=== PATIENT | female | born 1985 | race Caucasian/White ===

== ENCOUNTER 2019-09-08 13:20 | Emergency (ER) | payer BC, MEDICAID ==
--- NOTE | 2019-09-08 14:13 | XRAY ---
Indication: Cough and dyspnea. Comparison: April 21, 2009. Portable chest again demonstrates normal heart, lungs, and bony thorax.
[2019-09-08 15:27] LABS: INFLUENZA A NEGATIVE (NEGATIVE); INFLUENZA B NEGATIVE (NEGATIVE); RESPIRATORY SYNCTIAL VIRUS NEGATIVE (Negative)
[2019-09-08] MEDS ORDERED: Rocephin 1000 MG INJ IM ONE (15:37)
--- NOTE | 2019-09-08 15:37 | ERPHSYRPT ---
- History of Present Illness Time Seen by Provider: 09/08/19 13:30 Source: patient Exam Limitations: no limitations Patient Subjective Stated Complaint: Cough Triage Nursing Assessment: Patient ambulated back to ED and transferred self to bed. Patient A+O X3. Patient's skin pink, warm and dry. Patient complains of cough since Saturday. Patient states cough is productive with thick yellow/green sputum. Patient's lungs clear a/p brigette. Patient denies pain, but states she aches all over. Physician History: patient is a 34-year-old female who presents with cough for 5 days producing green-yellow sputum she has had no fever her sinuses have been very congested she is getting some drainage from her head she also says it hurts to cough. Timing/Duration: day(s) (5) Cough Quality/Degree: productive cough, sputum Possible Cause: occasional episodes Modifying Factors: Improves With: coughing Associated Symptoms: chest pain/soreness, cough, facial pain, headache, nasal congestion, nasal drainage Allergies/Adverse Reactions: clarithromycin [From Biaxin] Allergy (Verified 09/08/19 13:27) codeine Allergy (Verified 09/08/19 13:27) methylprednisolone acetate [From Depo-Medrol] Allergy (Verified 09/08/19 13:27) medroxyprogesterone acetate [From Depo-Provera] Adverse Reaction (Verified 09/08 13:27) promethazine HCl [From Phenergan] Adverse Reaction (Verified 09/08/19 13:27) Home Medications: Naproxen 375 mg [Naprosyn 375 mg] 1 tab PO BID 09/08/19 [History] Hx Tetanus, Diphtheria Vaccination/Date Given: Yes Hx Influenza Vaccination/Date Given: No Hx Pneumococcal Vaccination/Date Given: No Immunizations Up to Date: Yes - Review of Systems Constitutional: No Fever, No Chills Eyes: No Symptoms Ears, Nose, & Throat: Nose Congestion, Nose Discharge, Sinus Drainage Respiratory: Cough, No Dyspnea Cardiac: Chest Pain (with cough), No Edema, No Syncope Abdominal/Gastrointestinal: No Abdominal Pain, No Nausea, No Vomiting, No Diarrhea Genitourinary Symptoms: No Dysuria Musculoskeletal: No Back Pain, No Neck Pain Skin: No Rash Neurological: No Dizziness, No Focal Weakness, No Sensory Changes Psychological: No Symptoms Endocrine: No Symptoms All Other Systems: Reviewed and Negative - Past Medical History Pertinent Past Medical History: Yes Neurological History: No Pertinent History ENT History: No Pertinent History Cardiac History: No Pertinent History Endocrine Medical History: No Pertinent History Musculoskeletal History: Fibromyalgia GI Medical History: No Pertinent History History: No Pertinent History Psycho-Social History: No Pertinent History Female Reproductive Disorders: No Pertinent History - Past Surgical History Past Surgical History: Yes Neuro Surgical History: No Pertinent History Cardiac: No Pertinent History Respiratory: No Pertinent History Gastrointestinal: Appendectomy, Cholecystectomy Genitourinary: No Pertinent History Musculoskeletal: No Pertinent History Female Surgical History: Hysterectomy, Other Other Surgical History: TONSILLECTOMY - BREAST REDUCTION - Social History Smoking Status: Current every day smoker How long have you smoked: years Exposure to second hand smoke: Yes Drug Use: none Patient Lives Alone: No - Female History Hx Last Menstrual Period: complete hysterectomy Hx Now: No - Nursing Vital Signs Nursing Vital Signs: Initial Vital Signs Temperature 97.9 F 09/08/19 13:29 Pulse Rate 107 H 09/08/19 13:29 Respiratory Rate 18 09/08/19 13:29 Blood Pressure 143/101 09/08/19 13:29 O2 Sat by Pulse Oximetry 97 09/08/19 13:29 Pain Scale Pain Intensity 3 - Physical Exam General Appearance: mild distress, alert Eye Exam: PERRL/EOMI, eyes nml inspection Ears, Nose, Throat Exam: normal ENT inspection, TMs normal, pharynx normal, moist mucous membranes Neck Exam: normal inspection, non-tender, supple, full range of motion Respiratory Exam: rhonchi, No respiratory distress Cardiovascular Exam: regular rate/rhythm, normal heart sounds Gastrointestinal/Abdomen Exam: soft, No tenderness Back Exam: normal inspection, No CVA tenderness, No vertebral tenderness Extremity Exam: normal inspection, normal range of motion Neurologic Exam: alert, oriented x 3, cooperative, normal mood/affect, sensation nml, No motor deficits Skin Exam: normal color, warm, dry, No rash Lymphatic Exam: No adenopathy SpO2: 97 - Course Nursing assessment & vital signs reviewed: Yes - Radiology Exams Chest X-ray Interpretation: Negative Ordered Tests: Active Orders 24 hr Category Date Time Status CHEST 1 VIEW (PORTABLE) Stat Exams 09/08/19 13:53 Completed Lab/Rad Data: Laboratory Results 09/08/19 Range/Units 14:05 Influenza Type A Ag NEGATIVE (NEGATIVE) Influenza Type B Ag NEGATIVE (NEGATIVE) RSV (PCR) NEGATIVE (Negative) - Progress Progress: unchanged Air Movement: good Blood Culture(s) Obtained: No Antibiotics given: Yes - Departure Departure Disposition: Home Clinical Impression: Sinusitis Condition: Stable Critical Care Time: No Referrals: SHAZIA VALDEZ [Primary Care Provider] - Prescriptions: Benzonatate [Tessalon Perle] 200 mg PO TID #12 capsule Cephalexin Mh 500 mg [Keflex 500 mg] 500 mg PO TID 10 Days #30 capsule
[2019-09-08] MEDS ORDERED: Rocephin 1000 MG INJ ONE (15:50)
[2019-09-08] MEDS ORDERED: XYLOCAINE 1% HCL 20 ML MDV ONE (15:51)
[2019-09-08 16:20] VITALS: BP 124/86; PULSE 104; O2SAT 99
== END 2019-09-08 16:20 | disposition home or self-care (01) ==
LOC: ED 13:20
DX: J32.9 Chronic sinusitis, unspecified (principal); R07.89 Other chest pain; R05 Cough; R51 Headache; R09.81 Nasal congestion
CPT/HCPCS: 71045; 87631; 96372; 99284; J0696

== ENCOUNTER 2021-03-30 11:13 | Emergency (ER) | payer MEDICAID ==
[2021-03-30] MEDS ORDERED: TORAdol 30 mg Injection IM ONE (11:35)
[2021-03-30] MEDS ORDERED: Norflex 60 MG/2 ML IM ONE (11:35)
[2021-03-30] MEDS ORDERED: Norflex 60 MG/2 ML ONE (11:38)
[2021-03-30] MEDS ORDERED: TORAdol 30 mg Injection ONE (11:38)
--- NOTE | 2021-03-30 11:41 | ERPHSYRPT ---
- History of Present Illness Time Seen by Provider: 03/30/21 11:15 Source: patient Exam Limitations: no limitations Patient Subjective Stated Complaint: pt here for pain to irght lower back and hip, she states she was helping with her grandma whos in a wc and hurt it openi ng a door, Triage Nursing Assessment: pt alert, resp easy, waked in, skin w/d/p. has face mask on Physician History: 35 years old female with history of back pain with SI joint issues in the past presented in the ER with chief complaint of right lower back pain/sacroiliac area for the last 4 days after she was trying to pull her grandma on wheelchair, twisted to open the door and felt a popping sensation in the right sacroiliac area. Since then she is having sharp nature moderate to severe pain more with ambulation and better with resting without any midline pain. No loss of bowel or bladder control. Denies any numbness tingling or weakness of lower extremities. She has been taking Tylenol with no significant relief. Timing/Duration: day(s) (4), sudden, worse Method of Injury: twisted Quality: sharp Back Pain Location: paraspinous muscles Back Pain Radiation: buttocks Severity of Pain-Max: severe Severity of Pain-Current: moderate Modifying Factors: Improves With: immobilization, rest. Worsens With: movement Associated Symptoms: lower back pain, muscle spasms, No urinary incontinence, No loss of bowel control, No constipation, No nausea, No vomiting, No problems urinating, No light-headedness, No dizziness, No numbness in legs/feet, No sensory/motor loss Allergies/Adverse Reactions: clarithromycin [From Biaxin] Allergy (Verified 03/30/21 11:26) codeine Allergy (Verified 03/30/21 11:26) methylprednisolone acetate [From Depo-Medrol] Allergy (Verified 03/30/21 11:26) medroxyprogesterone acetate [From Depo-Provera] Adverse Reaction (Verified 03/30/21 11:26) promethazine HCl [From Phenergan] Adverse Reaction (Verified 03/30/21 11:26) Home Medications: Loratadine 10 mg [Claritin 10 mg] 1 ea DAILY 03/30/21 [History] Hx Tetanus, Diphtheria Vaccination/Date Given: Yes Hx Influenza Vaccination/Date Given: No Hx Pneumococcal Vaccination/Date Given: No Immunizations Up to Date: Yes Travel Risk - International Travel Have you traveled outside of the country in past 3 weeks: No - Coronavirus Screening Are you exhibiting any of the following symptoms?: No - Vaccine Status Have you recieved a Covid-19 vaccination: No - Review of Systems Constitutional: No Symptoms Ears, Nose, & Throat: No Symptoms Respiratory: No Symptoms Cardiac: No Symptoms Abdominal/Gastrointestinal: No Symptoms Genitourinary Symptoms: No Symptoms Musculoskeletal: Back Pain Neurological: No Symptoms Psychological: No Symptoms Endocrine: No Symptoms Hematologic/Lymphatic: No Symptoms Immunological/Allergic: No Symptoms - Past Medical History Pertinent Past Medical History: Yes Neurological History: No Pertinent History ENT History: No Pertinent History Cardiac History: No Pertinent History Endocrine Medical History: No Pertinent History Musculoskeletal History: Fibromyalgia GI Medical History: No Pertinent History History: No Pertinent History Psycho-Social History: No Pertinent History Female Reproductive Disorders: No Pertinent History - Past Surgical History Past Surgical History: Yes Neuro Surgical History: No Pertinent History Cardiac: No Pertinent History Respiratory: No Pertinent History Gastrointestinal: Appendectomy, Cholecystectomy Genitourinary: No Pertinent History Musculoskeletal: No Pertinent History Female Surgical History: Hysterectomy, Other Other Surgical History: TONSILLECTOMY - BREAST REDUCTION - Social History Smoking Status: Current every day smoker How long have you smoked: years Exposure to second hand smoke: No Drug Use: marijuana Patient Lives Alone: Yes - Female History Hx Last Menstrual Period: hyster Hx Now: No - Nursing Vital Signs Nursing Vital Signs: Initial Vital Signs Temperature 97.1 F 03/30/21 11:21 Pulse Rate 100 H 03/30/21 11:21 Respiratory Rate 18 03/30/21 11:21 Blood Pressure 115/89 03/30/21 11:21 O2 Sat by Pulse Oximetry 94 L 03/30/21 11:21 Pain Scale Pain Intensity [Right Hip] 6 Pain Intensity 9 - Physical Exam General Appearance: no apparent distress, alert Ears, Nose, Throat Exam: normal ENT inspection Neck Exam: normal inspection, supple, full range of motion Respiratory Exam: normal breath sounds, lungs clear Cardiovascular Exam: regular rate/rhythm, normal heart sounds Gastrointestinal Exam: soft, normal bowel sounds, No tenderness Back Exam: normal inspection, normal range of motion, muscle spasm, point tenderness (Right sacroiliac area), No CVA tenderness, No vertebral tenderness Extremity Exam: normal inspection, normal range of motion, pelvis stable Neurologic Exam: alert, oriented x 3, cooperative, other (2+ reflexes in lower extremities bilaterally/symmetrical) Skin Exam: normal color, warm SpO2 Interpretation: normal SpO2: 94 O2 Delivery: Room Air Ordered Tests: Medication Summary Discontinued Medications Generic Name Dose Route Start Last Admin Trade Name Sophy PRN Reason Stop Dose Admin Ketorolac Tromethamine 30 mg 03/30/21 11:35 03/30/21 11:50 Toradol 30 Mg Injection IM 03/30/21 11:36 30 mg STAT ONE Administration Ketorolac Tromethamine Confirm 03/30/21 11:38 Toradol 30 Mg Injection Administered 03/30/21 11:39 Dose 30 mg .ROUTE .STK-MED ONE Orphenadrine Citrate 60 mg 03/30/21 11:35 03/30/21 11:51 Norflex 60 Mg/2 Ml IM 03/30/21 11:36 60 mg STAT ONE Administration Orphenadrine Citrate Confirm 03/30/21 11:38 Norflex 60 Mg/2 Ml Administered 03/30/21 11:39 Dose 60 mg .ROUTE .STK-MED ONE - Progress Progress: improved, pain not gone completely, re-examined Progress Note: She is given Toradol and Norflex, on reevaluation feeling better. Does not have any neuro symptoms in lower extremity. No loss of bowel or bladder control. Pain is not in midline. Is more of a sacroiliac area strain. Recommended NSAIDs and muscle relaxers to go home. Discussed signs symptoms of worsening needing return to ER which he seems understanding. Stable for discharge. 03/30/21 13:00 Counseled pt/family regarding: diagnosis, need for follow-up - Departure Departure Disposition: Home Clinical Impression: Low back strain Qualifiers: Encounter type: initial encounter Qualified Code(s): S39.012A - Strain of muscle, fascia and tendon of lower back, initial encounter Condition: Stable Critical Care Time: No Referrals: SHAZIA VALDEZ [Primary Care Provider] - Follow Up with PCP/3 days Instructions: Low Back Pain (DC) Additional Instructions: Take Tylenol/ibuprofen along with muscle relaxants. Follow-up with primary care for reevaluation. Return to ER for worsening back pain, numbness tingling weakness of lower extremities/loss of bowel or bladder control. Prescriptions: Ibuprofen 600 mg PO Q6HPRN PRN 10 Days #20 tablet PRN Reason: Pain Cyclobenzaprine HCl 10 mg [Flexeril 10 MG] 10 mg PO TID #20 tablet
[2021-03-30 13:33] VITALS: BP 113/71; PULSE 83; O2SAT 96
== END 2021-03-30 13:34 | disposition home or self-care (01) ==
LOC: ED 11:13
DX: M54.5 Low back pain (principal); M25.559 Pain in unspecified hip; X50.0XXA Overexertion from strenuous movement or load, initial encounter; Y93.89 Activity, other specified; Y92.89 Other specified places as the place of occurrence of the external cause
CPT/HCPCS: 96372; 99283; J1885; J2360

== ENCOUNTER 2025-07-24 10:52 | Emergency (ER) | payer OTHER ==
[2025-07-24] MEDS ORDERED: TORAdol 30 mg Injection ONE (11:27)
[2025-07-24] MEDS ORDERED: VALIUM 10 MG/2 ML SYRINGE ONE (11:27)
[2025-07-24] MEDS: VALIUM 10 MG/2 ML SYRINGE IV ONE (11:28)
[2025-07-24] MEDS: TORAdol 30 mg Injection IV ONE (11:28)
--- NOTE | 2025-07-24 12:32 | ERPHSYRPT ---
- History of Present Illness Time Seen by Provider: 07/24/25 11:45 Source: patient Exam Limitations: clinical condition Patient Subjective Stated Complaint: chronic back pain Triage Nursing Assessment: Pt brought to the ER by EMS, vitals wnl, rates pain as 8/10, pulses normal, skin n/w/d, pt reports injuring SI joint 18 years ago, pt states that she had an MRi on December and just found out that her L4-L5 was "messed up" and it is radiating to her right buttock and radiates down her leg, denies chest injury, no SOB, doesn't appear to be in any distress Severity: moderate Allergies/Adverse Reactions: clarithromycin [From Biaxin] Allergy (Verified 01/28/25 20:44) codeine Allergy (Verified 01/28/25 20:44) methylprednisolone acetate [From Depo-Medrol] Allergy (Verified 01/28/25 20:44) medroxyprogesterone acetate [From Depo-Provera] Adverse Reaction (Verified 01/28/25 20:44) promethazine HCl [From Phenergan] Adverse Reaction (Verified 01/28/25 20:44) Home Medications: Loratadine 10 mg [Claritin 10 mg] 10 mg PO DAILY 03/30/21 [History] Ergocalciferol (Vitamin D2) [Vitamin D2] 1,250 mcg PO WEEKLY 01/28/25 [History] Hydroxyzine HCl 25 mg [Atarax 25 mg] 25 mg PO DAILY PRN 01/28/25 [History] Valacyclovir HCl [valACYclovir] 1,000 mg PO BID 01/28/25 [History] methocarbamoL [Methocarbamol] 750 mg PO BID 01/28/25 [History] ondansetron HCL [Ondansetron HCl] 4 mg PO DAILY PRN 01/28/25 [History] Desvenlafaxine Succinate [Desvenlafaxine Succinate ER] 25 mg PO DAILY 07/24/25 [History] Hydrocodone/Ibuprofen [Hydrocodone-Ibuprofen 7.5-200] 1 each PO Q4-6HPRN PRN 07/24/25 [History] Hx Tetanus, Diphtheria Vaccination/Date Given: Yes Hx Influenza Vaccination/Date Given: No Hx Pneumococcal Vaccination/Date Given: No Travel Risk - International Travel Have you traveled outside of the country in past 3 weeks: No - Emerging Infectious Disease Are you exhibiting symptoms associated with any current EIDs: No - Review of Systems Constitutional: No Symptoms Eyes: No Symptoms Ears, Nose, & Throat: No Symptoms Respiratory: No Symptoms Cardiac: No Symptoms Abdominal/Gastrointestinal: No Symptoms Genitourinary Symptoms: No Symptoms Musculoskeletal: Back Pain Skin: No Symptoms Neurological: No Symptoms Psychological: No Symptoms Endocrine: No Symptoms Hematologic/Lymphatic: No Symptoms Immunological/Allergic: No Symptoms All Other Systems: Reviewed and Negative - Past Medical History Pertinent Past Medical History: Yes Neurological History: No Pertinent History ENT History: No Pertinent History Cardiac History: No Pertinent History Endocrine Medical History: No Pertinent History Musculoskeletal History: Fibromyalgia GI Medical History: No Pertinent History History: No Pertinent History Psycho-Social History: No Pertinent History Female Reproductive Disorders: No Pertinent History - Past Surgical History Past Surgical History: Yes Neuro Surgical History: No Pertinent History Cardiac: No Pertinent History Respiratory: No Pertinent History Gastrointestinal: Appendectomy, Cholecystectomy Genitourinary: No Pertinent History Musculoskeletal: No Pertinent History Female Surgical History: Hysterectomy, Other Other Surgical History: TONSILLECTOMY - BREAST REDUCTION - Female History Hx Last Menstrual Period: hysterectomy Hx Now: No - Social History Smoking Status: Current every day smoker How long have you smoked: years Exposure to second hand smoke: Yes Drug Use: marijuana - Social Determinants of Health Will the patient participate in the screening: Yes Do you worry about a steady place to live?: No Do you have any problems with any of the following?: No known problems In the past 12 months,have you had to go without utilities?: No Transportation Issues: No Has anyone in your support network made you feel unsafe?: No Have you or anyone in your house had to go w/o enough food: No - Nursing Vital Signs Nursing Vital Signs: Initial Vital Signs Blood Pressure 133/93 07/24/25 11:00 O2 Sat by Pulse Oximetry 99 07/24/25 11:00 Pain Scale Pain Intensity [Medial Back] 7 Pain Intensity 0 - Physical Exam General Appearance: anxiety Eye Exam: PERRL/EOMI Respiratory Exam: normal breath sounds Cardiovascular Exam: regular rate/rhythm Gastrointestinal/Abdomen Exam: soft, normal bowel sounds Extremity Exam: other (patient is tender to the lower lumbar region on the right and has fair ROM of the right lower extremity with passive and active ROM when she is laying down , she has paravetebral muscle spasm) Neurologic Exam: alert, oriented x 3 Skin Exam: normal color SpO2: 97 Ordered Tests: Active Orders 24 hr Category Date Time Status LUMBAR SPINE W/O [CT] Stat Exams 07/24/25 11:24 Completed Medication Summary Discontinued Medications Generic Name Dose Route Start Last Admin Trade Name Sophy PRN Reason Stop Dose Admin Diazepam 10 mg 07/24/25 11:23 07/24/25 11:28 Diazepam 10 Mg/2 Ml Disp.Syringe IV 07/24/25 11:24 10 mg STAT ONE Administration Diazepam Confirm 07/24/25 11:27 Diazepam 10 Mg/2 Ml Disp.Syringe Administered 07/24/25 11:28 Dose 10 mg .ROUTE .STK-MED ONE Haloperidol Lactate 5 mg 07/24/25 15:49 07/24/25 16:05 Haloperidol Lactate 5 Mg/Ml Vial IV 07/24/25 15:50 5 mg STAT ONE Administration Haloperidol Lactate Confirm 07/24/25 16:05 Haloperidol Lactate 5 Mg/Ml Vial Administered 07/24/25 16:06 Dose 5 mg .ROUTE .STK-MED ONE Ketorolac Tromethamine 30 mg 07/24/25 11:24 07/24/25 11:28 Ketorolac Tromethamine 30 Mg/Ml Inj IV 07/24/25 11:25 30 mg STAT ONE Administration Ketorolac Tromethamine Confirm 07/24/25 11:27 Ketorolac Tromethamine 30 Mg/Ml Inj Administered 07/24/25 11:28 Dose 30 mg .ROUTE .STK-MED ONE - Progress Progress Note: patient was seen and evaluated for her complaints and ct lumbar spine was ordered she was updated with the results 07/24/25 13:15 IMPRESSION: 1. Secondary changes of back muscles spasm. 2. Mild lumbar spondylosis. 3. Multilevel disc bulges with superadded protrusion, resulting in subsequent neural foraminal stenosis, are becoming more evident at L4-L5 and L5-S1, showing moderate neural foraminal stenosis with subsequent impingement on the exiting nerve roots, as detailed. 4. Facet joint arthropathy adds to the neural compromise. 5. Mild arthritic changes along both sacroiliac joints. 6. In comparison to the previous exam, the time interval progression with multilevel disc bulges and de stanton facet joint arthropathy which weren't evident in the prior study. Patient wishes to be transferred to [facility] as she has been seen in treated there in the past I spoke to the neurosurgeon on-call who reviewed the patient's images he wants the patient transferred to [facility] for further evaluation and treatment he will see the patient in consultation. I spoke to the hospitalist Dr. doe -she will see the patient in consultation and will except the patient she was updated with the patient's lab results and CT results and therapies administered. Patient and her family were updated with the plan and are agreeable and have no further questions 07/24/25 17:03 - Departure Departure Disposition: Transfer (to [facility]) Clinical Impression: Acute low back pain Condition: Stable Critical Care Time: No Referrals: SAW ACEVEDO MD [Primary Care Provider, [facility]] - Follow up/PCP as directed
--- NOTE | 2025-07-24 13:06 | XRAY ---
CLINICAL HISTORY: acute back pain COMPARISON: Previous CT study dated 08/28/2008. TECHNIQUE: CT non-contrast scan of lumbar spine done. Axial images obtained with reformatted coronal and sagittal images and submitted for interpretation. One of the following dose reduction techniques were utilized for this exam: Automated exposure control, adjustment of the mA and/or kV according to patient size, use of iterative reconstruction. FINDINGS: Vertebrae: Spastric traightening of the lumbar spine. Normal alignment of the lumbar vertebrae. No fractures, lytic or sclerotic lesions. Normal bone density without evidence of osteopenia or osteoporosis. Mild spondylodegenrative changes of the spine Intervertebral Discs: Minimally reduced disc height was identified along the L5-S1 level. Otherwise, rather preserved disc heights were identified. L3-L4: 2.2 diffuse disc bulge, indenting the thecal sac and encroaching on both neural exit pathways. Bilateral mild neural foraminal stenosis. L4-L5: 5mm left paracentral and left foraminal protrusion on top of diffuse disc bulge indenting the thecal sac and encroaching on both neural exit pathways. Left-sided moderate neural foraminal stenosis, right-sided mild neural foraminal stenosis. Suspected impingement on the exiting nerve roots is more on the left side. L5-S1: 6.2mm broad-base central/ right paracentral and foraminal protrusion on top of diffuse disc bulge, indenting the thecal sac and encroaching on both neural exit pathways. Right-sided moderate to severe neural foraminal stenosis, and left-sided mild to moderate neural foraminal stenosis. Suspected impingement on the exiting nerve roots is more on the right side. The rest of the scanned lumbar and lower thoracic discs show no significant disc pathology and no neural foraminal stenosis. Facet Joints: Facet arthropathy was identified and is more evident at the L4-L5 and L5-S1 levels. Spinal Canal: The spinal canal is of normal caliber with no evidence of primary spinal stenosis. Sacroiliac joints: Bilateral arthritic changes along both sacroiliac joints. Soft Tissues: Normal appearance of the paraspinal soft tissues. No abnormal masses, fluid collections, or signs of inflammation. IMPRESSION: 1. Secondary changes of back muscles spasm. 2. Mild lumbar spondylosis. 3. Multilevel disc bulges with superadded protrusion, resulting in subsequent neural foraminal stenosis, are becoming more evident at L4-L5 and L5-S1, showing moderate neural foraminal stenosis with subsequent impingement on the exiting nerve roots, as detailed. 4. Facet joint arthropathy adds to the neural compromise. 5. Mild arthritic changes along both sacroiliac joints. 6. In comparison to the previous exam, the time interval progression with multilevel disc bulges and de stanton facet joint arthropathy which weren't evident in the prior study. Electronically Signed by: Bala Ashley MD. (07/24/2025 13:04:12 EST)
[2025-07-24 14:39] VITALS: RESP 18
[2025-07-24] MEDS: Haldol 5 MG IV ONE (16:05)
[2025-07-24] MEDS ORDERED: Haldol 5 MG ONE (16:05)
[2025-07-24 16:09] VITALS: PULSE 94
[2025-07-24 17:06] VITALS: O2SAT 97
[2025-07-24 17:26] VITALS: BP 138/108
== END 2025-07-24 17:32 | disposition short-term general hospital (02) ==
LOC: ED 10:52
DX: M54.50 Low back pain, unspecified (principal); Z79.891 Long term (current) use of opiate analgesic; Z79.899 Other long term (current) drug therapy; Z72.0 Tobacco use